=== PATIENT | female | born 1985 | race Two or more races ===

== ENCOUNTER 2016-12-05 07:58 | Emergency (ER) | payer SELFPAY ==
--- NOTE | 2016-12-05 09:29 | ER Document Report ---
ED Substance Abuse / Acc. OD - General Mode of Arrival: Medic Information source: Patient TRAVEL OUTSIDE OF THE U.S. IN LAST 30 DAYS: No - HPI Patient complains to provider of: Drug abuse - cocaine Onset: This morning Associated Symptoms: Other - see notes above <AMARJIT DON - Last Filed: 12/05/16 10:18> <LAURE DE LA CRUZ - Last Filed: 12/05/16 14:39> - General Chief Complaint: Drug Abuse Stated Complaint: BODY PAIN Time Seen by Provider: 12/05/16 09:00 Notes: 31 year old female with history of anxiety, depression, bipolar disorder, and cocaine and methamphetamine substance abuse presents to the ED complaining of generalized pain and visual and auditory hallucinations that started this morning after snorting and injecting cocaine at approximately 0500. Patient reports that she injected into her hand. Patient explains that she feels different from when she normally uses and that she got her cocaine from a new source recently. Patient is specifically complaining of chest soreness. Patient also states that she got mad at the nurse because she heard her parents outside her room even though no one was there. Patient denies suicidal ideation. When asked if the patient would like to receive help to quit substance abuse, the patient explains that she 'knows that it is the right thing to do', but she ' likes the way it feels.' (AMARJIT DON) Patient states that her biggest concern today is that there may have been something other than cocaine in the drug that she used. Patient states she would like to know what else she used today. (LAURE DE LA CRUZ) - Related Data Allergies/Adverse Reactions: Sulfa (Sulfonamide Antibiotics) Allergy (Verified 12/05/16 08:05) Past Medical History - General Information source: Patient - Social History Smoking Status: Current Every Day Smoker Chew tobacco use (# tins/day): No Frequency of alcohol use: Social Drug Abuse: Cocaine, Methamphetamine Family History: Reviewed & Not Pertinent Patient has suicidal ideation: No Patient has homicidal ideation: No Renal/ Medical History: Reports: Hx Ovarian Cysts. Denies: Hx Peritoneal Dialysis Musculoskeltal Medical History: Reports Hx Musculoskeletal Trauma - fractured foot, shoulder dislocation, fractured finger Psychiatric Medical History: Reports: Hx Anxiety, Hx Bipolar Disorder, Hx Depression, Hx Schizophrenia Traumatic Medical History: Reports: Hx Fractures Past Surgical History: Reports: Hx Orthopedic Surgery - Left fifth finger was pinned on 04/02/2015. - Immunizations Immunizations up to date: Yes Hx Diphtheria, Pertussis, Tetanus Vaccination: Yes <DONAMARJIT - Last Filed: 12/05/16 10:18> Review of Systems - Review of Systems Constitutional: See HPI, Other - generalized 'soreness' EENT: No symptoms reported Cardiovascular: See HPI, Chest pain - 'soreness' Respiratory: No symptoms reported Gastrointestinal: No symptoms reported Genitourinary: No symptoms reported Female Genitourinary: No symptoms reported Musculoskeletal: No symptoms reported Skin: No symptoms reported Hematologic/Lymphatic: No symptoms reported Neurological/Psychological: See HPI, Hallucinations - visual and auditory. denies: Suicidal ideation -: Yes All other systems reviewed and negative <DONAMARJIT - Last Filed: 12/05/16 10:18> Physical Exam <AMARJIT DON - Last Filed: 12/05/16 10:18> <LAURE DE LA CRUZ - Last Filed: 12/05/16 14:39> - Vital signs Vitals: Temp Pulse Resp BP Pulse Ox 98 F 138 H 26 H 137/108 H 98 12/05/16 08:05 12/05/16 08:05 12/05/16 08:05 12/05/16 08:05 12/05/16 08:05 - Notes Notes: GENERAL: Alert, interacts well. No acute distress. HEAD: Normocephalic, atraumatic. EYES: Pupils equal, round, and reactive to light. Extraocular movements intact. ENT: Oral mucosa moist, tongue midline. Nares patent, no nasal septal hematoma. Clear rhinorrhea and swelling to the right nostril. Left septum is erythematous with no bleeding. There is no hole to the nasal septum. NECK: Full range of motion. Supple. Trachea midline. LUNGS: Clear to auscultation bilaterally, no wheezes, rales, or rhonchi. No respiratory distress. HEART: Tachycardic with normal rhythm. No murmurs, gallops, or rubs. ABDOMEN: Soft. Non-distended. Slightly hyperactive bowel sounds. Bilateral lower quadrant tenderness to palpation with no guarding, rebound, or rigidity. EXTREMITIES: Moves all 4 extremities spontaneously. No edema, radial and dorsalis pedis pulses 2/4 bilaterally. No cyanosis. NEUROLOGICAL: Alert and oriented x3. Normal speech. PSYCH: Tearful and anxious. SKIN: Warm, dry, normal turgor. Track toscano to the dorsal aspect of the left hand and ulnar aspect of the right wrist and hand. No thrombosis, erythema, or signs of infection. (AMARJIT DON) Course - Laboratory Result Diagrams: 12/05/16 09:55 12/05/16 09:55 <AMARJIT DON - Last Filed: 12/05/16 10:18> - Laboratory Result Diagrams: 12/05/16 09:55 12/05/16 09:55 <LAURE DE LA CRUZ - Last Filed: 12/05/16 14:39> - Re-evaluation Re-evalutation: 12/05/16 12:51 CBC shows slight leukocytosis of 11.7 which is likely demargination from the stress of using cocaine, mild anemia with a hemoglobin 11.6, potassium slightly low at 3.4, this was repleted by mouth, 3 is otherwise unremarkable, cardiac enzymes negative, EKG is nonischemic, urine drug screen shows cocaine and marijuana, cannot test for amphetamines as there is an interfering substance. Chest x-ray is negative. Patient was hydrated with a liter of normal saline and treated with oral Ativan. Patient is no longer having any hallucinations, tachycardia has resolved while sleeping. Patient now remembers that she is scheduled to go to [facility] tomorrow for an inpatient 6 day rehab program. Patient denies suicidal ideation, will be discharged home (LAURE DE LA CRUZ) - Vital Signs Vital signs: Temp Pulse Resp BP Pulse Ox 98 F 138 H 18 119/75 100 12/05/16 08:05 12/05/16 08:05 12/05/16 13:01 12/05/16 13:01 12/05/16 13:01 - Laboratory Laboratory results interpreted by me: 12/05/16 12/05/16 09:55 09:55 WBC 11.7 H Hgb 11.6 L Hct 34.3 L Absolute Neutrophils 8.9 H Potassium 3.4 L - EKG Interpretation by Me Additional EKG results interpreted by me: 12/05/16 12:51 EKG shows sinus tachycardia at a rate of 103, normal axis, normal intervals, no ST segment elevations or depressions, there are isolated T-wave inversion in lead III per my interpretation. 12/05/16 12:51 (LAURE DE LA CRUZ) Discharge <AMARJIT DON - Last Filed: 12/05/16 10:18> <LAURE DE LA CRUZ - Last Filed: 12/05/16 14:39> - Discharge Clinical Impression: Cocaine use, Marijuana use, Amphetamine use disorder, moderate, Auditory hallucinations Condition: Stable Disposition: HOME, SELF-CARE Additional Instructions: Please stop using drugs. Please keep your appointment with [facility] tomorrow for your inpatient drug rehab program. Scribe Attestation: 12/05/16 14:39 I personally performed the services described in the documentation, reviewed and edited the documentation which was dictated to the scribe in my presence, and it accurately records my words and actions. (LAURE DE LA CRUZ) Scribe Documentation - Scribe Written by Bishnu:: Bishnu Meza, 12/05/2016 1041 acting as scribe for :: Saud <AMARJIT DON - Last Filed: 12/05/16 10:18>
[2016-12-05] MEDS ORDERED: LORAZEPAM 1 MG TABLET PO ONE (09:32)
[2016-12-05] MEDS ORDERED: ASPIRIN 81 MG TABLET, CHEWABLE PO ONE (09:32)
[2016-12-05] MEDS ORDERED: NORMAL SALINE 1000 ML 1,000 ML IV ONE (09:32)
[2016-12-05 10:17] LABS: ABSOLUTE LYMPHOCYTES (AUTO) 1.8 10^3/uL (0.5-4.7); ABSOLUTE MONOCYTES (AUTO) 0.9 10^3/uL (0.1-1.4); ABSOLUTE NEUT (AUTO) 8.9 10^3/uL (1.7-8.2); BASOPHILS % (AUTO) 0.3 % (0-2); EOSINOPHILS % (AUTO) 0.2 % (0-6); HEMATOCRIT 34.3 % (36.0-47.0); HEMOGLOBIN 11.6 g/dL (12.0-15.5); HGB HCT DIFFERENCE 0.5; LYMPHOCYTES % (AUTO) 15.5 % (13-45); MEAN CORPUSCULAR HEMOGLOBIN 28.8 pg (27.0-33.4); MEAN CORPUSCULAR HGB CONC 33.8 g/dL (32.0-36.0); MEAN CORPUSCULAR VOLUME 85 fl (80-97); MONOCYTES % (AUTO) 7.6 % (3-13); RED BLOOD COUNT 4.02 10^6/uL (3.72-5.28); RED CELL DISTRIBUTION WIDTH 12.5 % (11.5-14.0); SEGMENTED NEUTROPHILS % (AUTO) 76.4 % (42-78); WHITE BLOOD COUNT 11.7 10^3/uL (4.0-10.5)
--- NOTE | 2016-12-05 10:31 | RADIOLOGY REPORT (SQ) ---
EXAM DESCRIPTION: CHEST SINGLE VIEW COMPLETED DATE/TIME: 12/05/2016 10:14 am REASON FOR STUDY: chest pain post cocaine use COMPARISON: 03/28/2015 EXAM PARAMETERS: NUMBER OF VIEWS: One view. TECHNIQUE: Single frontal radiographic view of the chest acquired. RADIATION DOSE: NA LIMITATIONS: None. FINDINGS: LUNGS AND PLEURA: No opacities, masses or pneumothorax. No pleural effusion. MEDIASTINUM AND HILAR STRUCTURES: No masses. Contour normal. HEART AND VASCULAR STRUCTURES: Heart normal in size. Normal vasculature. BONES: No acute findings. HARDWARE: None in the chest. OTHER: No other significant finding. IMPRESSION: NO ACUTE RADIOGRAPHIC FINDING IN THE CHEST. TECHNICAL DOCUMENTATION: JOB ID: [id number]
[2016-12-05 10:36] LABS: ALANINE AMINOTRANSFERASE 36 U/L (9-52); ALBUMIN 4.6 g/dL (3.5-5.0); ALKALINE PHOSPHATASE 90 U/L (38-126); ANION GAP 16 (5-19); ASPARTATE AMINO TRANSFERASE 29 U/L (14-36); BILIRUBIN,DIRECT 0.3 mg/dL (0.0-0.4); BILIRUBIN,TOTAL 0.8 mg/dL (0.2-1.3); BLOOD UREA NITROGEN 16 mg/dL (7-20); CARBON DIOXIDE 25 mmol/L (22-30); CHLORIDE 102 mmol/L (98-107); CREATINE KINASE 91 U/L (30-135); CREATININE RESULT 0.66 mg/dL (0.52-1.25); GLUCOSE 89 mg/dL (75-110); POTASSIUM 3.4 mmol/L (3.6-5.0); SODIUM 142.6 mmol/L (137-145); TOTAL PROTEIN 8.2 g/dL (6.3-8.2)
[2016-12-05 10:46] LABS: CREATINE KINASE MB 0.71 ng/mL (<4.55); TROPONIN I < 0.012 ng/mL
[2016-12-05 12:03] LABS: URINE BARBITURATES SCREEN NEGATIVE; URINE METHADONE SCREEN NEGATIVE; URINE OPIATES LOW NEGATIVE; URINE PHENCYCLIDINE SCREEN NEGATIVE
[2016-12-05] MEDS ORDERED: POTASSIUM CHLORIDE 10 MEQ TABLET.SA PO ONE (12:51)
[2016-12-05 13:12] VITALS: BP 119/75
--- NOTE | 2016-12-05 17:07 | EKG REPORT ---
SEVERITY:- OTHERWISE NORMAL ECG - SINUS TACHYCARDIA : Confirmed by: Francisco Javier Li 05-Dec-2016 17:06:36
== END 2016-12-05 13:20 | disposition home or self-care (01) ==
LOC: ER 07:58
DX: R44.0 Auditory hallucinations (principal); F14.10 Cocaine abuse, uncomplicated; F15.10 Other stimulant abuse, uncomplicated; F12.90 Cannabis use, unspecified, uncomplicated; R52 Pain, unspecified; F41.9 Anxiety disorder, unspecified; F32.9 Major depressive disorder, single episode, unspecified; F31.9 Bipolar disorder, unspecified; R07.9 Chest pain, unspecified; F17.200 Nicotine dependence, unspecified, uncomplicated
CPT/HCPCS: 93005; 99284; 36415; 82553; 82550; 84703; 85025; 80053; 84484; 80307; 71010; 93010; J7030

== ENCOUNTER 2017-02-12 17:59 | Emergency (ER) | payer SELFPAY ==
[2017-02-12 18:08] VITALS: BP 132/79
--- NOTE | 2017-02-12 18:43 | ER Document Report ---
ED Medical Screen (RME) - General Chief Complaint: Mouth Problem Stated Complaint: MOUTH PAIN Time Seen by Provider: 02/12/17 18:35 Notes: Patient is here because she says she has had a painful sore in the gum of her mouth that is getting bigger over the past 3 weeks. She says it is now 3 times the size it was when it started. She is concerned that she may have mouth cancer because it runs in her family. In addition, the patient says that she has been constipated and does not think she has had a bowel movement for about a week. Denies vomiting or diarrhea. Denies UTI symptoms. Says she has felt hot but not aware of a fever. Says it is difficult to chew food and swallow. Patient is so tearful and almost hysterical that it is impossible to visualize her oral structures. She will not sit still for even a few seconds for me to locate the lesion she is concerned about. TRAVEL OUTSIDE OF THE U.S. IN LAST 30 DAYS: No - Related Data Allergies/Adverse Reactions: Sulfa (Sulfonamide Antibiotics) Allergy (Verified 02/12/17 18:02) Past Medical History - Social History Chew tobacco use (# tins/day): No Frequency of alcohol use: Rare Drug Abuse: Cocaine, Marijuana Renal/ Medical History: Reports: Hx Ovarian Cysts. Denies: Hx Peritoneal Dialysis Musculoskeltal Medical History: Reports Hx Musculoskeletal Trauma - fractured foot, shoulder dislocation, fractured finger Psychiatric Medical History: Reports: Hx Anxiety, Hx Bipolar Disorder, Hx Depression, Hx Schizophrenia Traumatic Medical History: Reports: Hx Fractures Past Surgical History: Reports: Hx Orthopedic Surgery - Left fifth finger was pinned on 04/02/2015. - Immunizations Immunizations up to date: Yes Hx Diphtheria, Pertussis, Tetanus Vaccination: Yes Physical Exam - Vital signs Vitals: Temp Pulse Resp BP Pulse Ox 100.4 F 141 H 24 H 132/79 H 99 02/12/17 18:02 02/12/17 18:02 02/12/17 18:02 02/12/17 18:02 02/12/17 18:02 Course - Vital Signs Vital signs: Temp Pulse Resp BP Pulse Ox 100.4 F 141 H 24 H 132/79 H 99 02/12/17 18:02 02/12/17 18:02 02/12/17 18:02 02/12/17 18:02 02/12/17 18:02
== END 2017-02-12 19:00 | disposition left against medical advice (07) ==
LOC: ER 17:59
DX: K13.70 Unspecified lesions of oral mucosa (principal); K59.00 Constipation, unspecified; R13.10 Dysphagia, unspecified; Z80.0 Family history of malignant neoplasm of digestive organs; Z88.2 Allergy status to sulfonamides; Z53.20 Procedure and treatment not carried out because of patient's decision for unspecified reasons
CPT/HCPCS: 99281

== ENCOUNTER 2017-12-20 15:30 | Emergency (ER) | payer SELFPAY ==
[2017-12-20 15:37] VITALS: BP 109/76
[2017-12-20] MEDS ORDERED: PENICILLIN V POTASSIUM 500 MG TABLET PO ONE (15:53)
[2017-12-20] MEDS ORDERED: LIDOCAINE 2% VISCOUS SOLN 20 ML UDCUP PO ONE (15:53)
--- NOTE | 2017-12-20 15:55 | ER Document Report ---
ED Oral Problem - General Chief Complaint: Toothache Stated Complaint: TOOTH PAIN Time Seen by Provider: 12/20/17 15:40 Mode of Arrival: Ambulatory Information source: Patient Notes: 32-year-old female presented ED for complaint of dental pain. She states that the pain started this morning but she has had the cavities for a long time. Patient is alert and oriented respirations regular and unlabored speaking in full sentences walks with a even steady gait. TRAVEL OUTSIDE OF THE [place] IN LAST 30 DAYS: No - HPI Patient complains to provider of: Toothache Onset: Other - Pain started this morning cavities been there for a extended period of time Onset: Gradual Quality of pain: Sharp, Throbbing Severity: Severe Pain Level: 5 Associated symptoms: Toothache Worsened by: Cold Relieved by: Nothing Similar symptoms previously: Yes Recently seen / treated by doctor/dentist: No - Related Data Allergies/Adverse Reactions: Sulfa (Sulfonamide Antibiotics) Allergy (Verified 12/20/17 15:52) Past Medical History - General Information source: Patient - Social History Smoking Status: Current Every Day Smoker Cigarette use (# per day): Yes - 6 or 7 cigarettes a day Chew tobacco use (# tins/day): No Smoking Education Provided: Yes - Minutes Frequency of alcohol use: None Drug Abuse: None Lives with: Family Family History: Reviewed & Not Pertinent Patient has suicidal ideation: No Patient has homicidal ideation: No - Past Medical History Cardiac Medical History: Reports: None Pulmonary Medical History: Reports: None EENT Medical History: Reports: None Neurological Medical History: Reports: None Endocrine Medical History: Reports: None Renal/ Medical History: Reports: Hx Ovarian Cysts Malignancy Medical History: Reports: None GI Medical History: Reports: None Musculoskeltal Medical History: Reports Hx Musculoskeletal Trauma - fractured foot, shoulder dislocation, fractured finger Skin Medical History: Reports None Psychiatric Medical History: Reports: Hx Anxiety, Hx Bipolar Disorder, Hx Depression, Hx Schizophrenia Traumatic Medical History: Reports: Hx Fractures Infectious Medical History: Reports: None Past Surgical History: Reports: Hx Orthopedic Surgery - Left fifth finger was pinned on 04/02/2015. - Immunizations Immunizations up to date: Yes Hx Diphtheria, Pertussis, Tetanus Vaccination: Yes Review of Systems - Review of Systems Constitutional: No symptoms reported EENT: Dental problem Cardiovascular: No symptoms reported Respiratory: No symptoms reported Gastrointestinal: No symptoms reported Genitourinary: No symptoms reported Female Genitourinary: No symptoms reported Musculoskeletal: No symptoms reported Skin: No symptoms reported Hematologic/Lymphatic: No symptoms reported Neurological/Psychological: No symptoms reported -: Yes All other systems reviewed and negative Physical Exam - Vital signs Vitals: Temp Pulse BP Pulse Ox 98.8 F 115 H 109/76 99 12/20/17 15:36 12/20/17 15:36 12/20/17 15:36 12/20/17 15:36 Interpretation: Normal - General General appearance: Appears well, Alert - HEENT Head: Normocephalic, Atraumatic Eyes: Normal Pupils: PERRL Ears: Normal External canal: Normal Tympanic membrane: Normal Sinus: Normal Nasal: Normal Mouth/Lips: Caries Mucous membranes: Normal Pharynx: Normal Neck: Anterior cervical chain - Respiratory Respiratory status: No respiratory distress Chest status: Nontender Breath sounds: Normal Chest palpation: Normal - Cardiovascular Rhythm: Regular Heart sounds: Normal auscultation Murmur: No - Abdominal Inspection: Normal Distension: No distension Bowel sounds: Normal Tenderness: Nontender Organomegaly: No organomegaly - Back Back: Normal, Nontender - Extremities General upper extremity: Normal inspection, Nontender, Normal color, Normal ROM , Normal temperature General lower extremity: Normal inspection, Nontender, Normal color, Normal ROM , Normal temperature, Normal weight bearing. No: Gaby's sign - Neurological Neuro grossly intact: Yes Cognition: Normal Orientation: AAOx4 Fabian Coma Scale Eye Opening: Spontaneous Fabian Coma Scale Verbal: Oriented Fabian Coma Scale Motor: Obeys Commands Fabian Coma Scale Total: 15 Speech: Normal Motor strength normal: LUE, RUE, LLE, RLE Sensory: Normal - Psychological Associated symptoms: Normal affect, Normal mood - Skin Skin Temperature: Warm Skin Moisture: Dry Skin Color: Normal Course - Re-evaluation Re-evalutation: 12/20/17 22:49 Patient was treated with Penicillin VK and viscous lidocaine for dental pain and cavity. Patient was instructed to use the viscous lidocaine every 1-2 hours small amount to the tooth and gums surrounding the tooth for her pain. Patient was also instructed on use of ibuprofen and Tylenol. Patient to follow- up with the dentist as soon as possible for care of this tooth. After performing a Medical Screening Examination, I estimate there is LOW risk for a DEEP SPACE INFECTION (e.g., ISA'S ANGINA OR RETROPHARYNGEAL ABSCESS), MENINGITIS, INTRACRANIAL HEMORRHAGE, or AIRWAY COMPROMISE, thus I consider the discharge disposition reasonable. Also, there is no evidence or peritonitis, sepsis, or toxicity. I have reevaluated this patient multiple times and no significant life threatening changes are noted. The patient and I have discussed the diagnosis and risks, and we agree with discharging home with close follow-up with the understanding that symptoms and presentations can change. We also discussed returning to the Emergency Department immediately if new or worsening symptoms occur. We have discussed the symptoms which are most concerning (e.g., changing or worsening pain, trouble swallowing or breathing, neck stiffness or fever) that necessitate immediate return. - Vital Signs Vital signs: Temp Pulse Resp BP Pulse Ox 98.8 F 92 18 109/76 99 12/20/17 15:36 12/20/17 16:09 12/20/17 16:09 12/20/17 15:36 12/20/17 16:09 Discharge - Discharge Clinical Impression: Pain due to dental caries Condition: Stable Disposition: HOME, SELF-CARE Additional Instructions: TOOTHACHE: Your pain is due to dental decay. The tooth must be repaired in order for you to feel better. You will, therefore, be referred to a dentist. We do not have dentists on the staff at [facility]. Severe swelling or drainage around a tooth usually means a dental abscess. This also requires evaluation and treatment by the dentist, but antibiotics may be prescribed while awaiting dental treatment. You should be rechecked immediately if you develop major swelling of the face, increasing pain, a lump in the jaw or gums, headache, difficulty swallowing, or fever. PENICILLIN V K: You have been given a prescription for Penicillin VK. Your physician has determined that this is the best antibiotic for your condition. Pen VK can be taken with meals, however more of the antibiotic gets into the bloodstream if it's taken on an empty stomach. Penicillin usually has no side effects. However, allergy to penicillins is common. If you have had an allergic reaction to any drug of the penicillin family, you should never take any other penicillin. Notify your doctor at once if you develop hives, itching, swelling, faintness, or shortness of breath. You have been given a syringe of viscous lidocaine. You can take a small amount of this and put it on your finger rub to the gums and front and back of the tooth it is certain he can also rub it on the tooth. Please be aware that this will also numb your cheek and your tongue. Please be careful that she do not chew on your cheek or your tongue. You can use this every 1-2 hours until you can follow-up with a dentist. You can gargle with warm salt and soda solution this will also help with your dental pain. Salt and soda solution 1 quart of water 1 tablespoon of salt 1 teaspoon of baking soda Mixed 3 ingredients together and boil for 1 minute Placed in a covered quart jar Use 1/2 ounce of cold solution to gargle 3 times a day FOLLOW-UP CARE: You have been referred for follow-up care to the dentists listed below. Call the dentists office for an appointment as you were instructed or within the next two days. If you experience worsening or a significant change in your symptoms, notify the physician immediately or return to the Emergency Department at any time for re-evaluation. [facility] [address] [place], [place] [facility] [address] [place] [address] [facility] [address] [facility] [address] [facility]) [facility] [address] [facility] [email or web address] [facility] [address] [place] [address] Thursday- 8:00am to 5:00 pm Will see patients from other [facility]. Charges based on income and family size and accepts Medicare, Medicaid, and Insurances Will pull molars [facility] [id number] Hours of Operation 8:00 am - 4:30 pm weekdays The following dental offices accept Medicaid: [facility] Dr. Cho Dr. Monterroso Dr. Naqvi Dr. Morgan Andrey Shane, [place], and [place] oral surgery Dr. Sandhu ([place]) Dr. Steen ([place]) [facility] Drs. Robison ([place]) Dr. Meier ([place]) [facility] Dr. Pratt ([place]) Drs. Bardales and ([place]) Medicaid Care Line Prescriptions: Penicillin V Potassium [Penicillin Vk 500 mg Tablet] 500 mg PO BID #20 tablet Forms: Smoking Cessation Education
== END 2017-12-20 16:11 | disposition home or self-care (01) ==
LOC: ER 15:30
DX: K02.9 Dental caries, unspecified (principal); F17.210 Nicotine dependence, cigarettes, uncomplicated; Z88.2 Allergy status to sulfonamides
CPT/HCPCS: 99282; J3490

== ENCOUNTER 2018-02-13 05:11 | Emergency (ER) | payer SELFPAY ==
--- NOTE | 2018-02-13 05:58 | ER Document Report ---
ED Medical Screen (RME) - General Chief Complaint: Headache Stated Complaint: NUMBNESS Time Seen by Provider: 02/13/18 05:48 Mode of Arrival: Medic Information source: Patient Notes: Patient is a 32-year-old female who presents via EMS for chief complaint of headache and right sided numbness and tingling. Patient reports her headache started yesterday at 3 PM. Patient describes this headache as a sudden onset. Patient denies any history of migraines. Patient reports she took Tylenol and Aleve with no relief of her symptoms. Patient reports she woke up this morning at approximately 3 AM and felt numbness and tingling to her right upper and lower extremity. Patient's vital signs are stable. Will send patient for head CT. Exam: Patient with equal strength to her upper and lower extremities bilaterally. Patient reports decreased sensation to the right upper and lower extremity. Patient is alert, oriented and able to answer all questions appropriately. I have greeted and performed a rapid initial assessment of this patient. A comprehensive ED assessment and evaluation of the patient, analysis of test results and completion of the medical decision making process will be conducted by additional ED providers. Dictation of this chart was performed using voice recognition software; therefore, there may be some unintended grammatical errors. TRAVEL OUTSIDE OF THE [place] IN LAST 30 DAYS: No - Related Data Allergies/Adverse Reactions: Sulfa (Sulfonamide Antibiotics) Allergy (Verified 12/20/17 15:52) Past Medical History - Social History Chew tobacco use (# tins/day): No Drug Abuse: Marijuana Renal/ Medical History: Reports: Hx Ovarian Cysts. Denies: Hx Peritoneal Dialysis Musculoskeltal Medical History: Reports Hx Musculoskeletal Trauma - fractured foot, shoulder dislocation, fractured finger Psychiatric Medical History: Reports: Hx Anxiety, Hx Bipolar Disorder, Hx Depression, Hx Schizophrenia Traumatic Medical History: Reports: Hx Fractures Past Surgical History: Reports: Hx Orthopedic Surgery - Left fifth finger was pinned on 04/02/2015. - Immunizations Immunizations up to date: Yes Hx Diphtheria, Pertussis, Tetanus Vaccination: Yes
[2018-02-13] MEDS ORDERED: METOCLOPRAMIDE HCL INJ/PF 10 MG/2 ML SDV IV ONE (06:18)
[2018-02-13] MEDS ORDERED: RINGERS SOLUTION,LACTATED 1,000 ML IV ONE (06:18)
[2018-02-13] MEDS ORDERED: DIPHENHYDRAMINE HCL 50 MG/ML VIAL IV ONE (06:18)
--- NOTE | 2018-02-13 06:25 | ER Document Report ---
ED General - General Chief Complaint: Headache Stated Complaint: NUMBNESS Time Seen by Provider: 02/13/18 05:48 Mode of Arrival: Ambulatory Information source: Patient, Emergency Med Personnel, [facility] Records Notes: 32-year-old female with bipolar disorder, schizophrenia, remote alcohol use presents with complaint of headache that started 15 hours prior to arrival while at rest. Patient states that she was getting ready for work when she had an acute onset of sharp pain located on top of her head. Patient has associated photophobia, nausea without vomiting. She denies any head injury. She denies any recent illness. Patient has tried Tylenol and Excedrin without relief. She states that 3-1/2 hours prior to arrival she awoke with numbness of her right leg which has now resolved. TRAVEL OUTSIDE OF THE [place] IN LAST 30 DAYS: No - HPI Onset: Yesterday Onset/Duration: Sudden, Persistent Quality of pain: Sharp Severity: Moderate Pain Level: 2 Associated symptoms: Headache, Nausea. denies: Body/muscle aches, Chest pain, Nonproductive cough, Fever, Sinus pain/drainage, Shortness of breath, Weakness Exacerbated by: Movement Relieved by: Denies Similar symptoms previously: No Recently seen / treated by doctor: No - Related Data Allergies/Adverse Reactions: Sulfa (Sulfonamide Antibiotics) Allergy (Verified 12/20/17 15:52) Past Medical History - General Information source: Patient - Social History Smoking Status: Current Every Day Smoker Cigarette use (# per day): Yes - 10 Chew tobacco use (# tins/day): No Smoking Education Provided: Yes - Patient was counseled for 4 minutes regarding the importance of smoking claudia Frequency of alcohol use: None Drug Abuse: Marijuana Lives with: Family Family History: Reviewed & Not Pertinent Patient has suicidal ideation: No Patient has homicidal ideation: No Renal/ Medical History: Reports: Hx Ovarian Cysts. Denies: Hx Peritoneal Dialysis Musculoskeletal Medical History: Reports Hx Musculoskeletal Trauma - fractured foot, shoulder dislocation, fractured finger Psychiatric Medical History: Reports: Hx Anxiety, Hx Bipolar Disorder, Hx Depression, Hx Schizophrenia Traumatic Medical History: Reports: Hx Fractures Past Surgical History: Reports: Hx Orthopedic Surgery - Left fifth finger was pinned on 04/02/2015. - Immunizations Immunizations up to date: Yes Hx Diphtheria, Pertussis, Tetanus Vaccination: Yes Review of Systems - Review of Systems Notes: REVIEW OF SYSTEMS: CONSTITUTIONAL : Denies fever, chills, or sweats. Denies recent illness. Denies weight loss, recent hospitalizations. EENT: Denies visual changes, eye pain. Denies nasal or sinus congestion or discharge. Denies sore throat, oral lesions, difficulty swallowing. CARDIOVASCULAR: Denies chest pain. Denies palpitations. Denies lower extremity edema. RESPIRATORY: Denies cough, cold, or chest congestion. Denies shortness of breath, wheezing. GASTROINTESTINAL: Denies abdominal pain or distention. Denies nausea, vomiting , or diarrhea. Denies blood in vomitus, stools, or per rectum. Denies black, tarry stools. Denies constipation. GENITOURINARY: Denies difficulty urinating, painful urination, frequency, blood in urine, or vaginal discharge. MUSCULOSKELETAL: Denies back or neck pain or stiffness. Denies joint pain or swelling. SKIN: Denies rash, lesions or sores. HEMATOLOGIC : Denies easy bruising or bleeding. LYMPHATIC: Denies swollen glands. NEUROLOGICAL: Denies confusion or altered mental status. Denies passing out or loss of consciousness. Denies dizziness or lightheadedness. . Denies weakness or paralysis. Denies problems difficulty with ambulation, slurred speech. Denies sensory loss, or tingling. Denies seizures. PSYCHIATRIC: Denies anxiety or stress. Denies depression, suicidal ideation, or homicidal ideation. Denies visual or auditory hallucinations. PHYSICAL EXAMINATION: GENERAL: Well-appearing, well-nourished and in no acute distress. HEAD: Atraumatic, normocephalic. EYES: Pupils equal round and reactive to light, extraocular movements intact, conjunctiva are normal. ENT: Nares patent, oropharynx clear without exudates. Moist mucous membranes. NECK: Normal range of motion, supple without lymphadenopathy LUNGS: Breath sounds clear to auscultation bilaterally and equal. No wheezes rales or rhonchi. HEART: Regular rate and rhythm without murmurs ABDOMEN: Soft, nontender, nondistended abdomen. No guarding, no rebound. No masses appreciated. Female : deferred Musculoskeletal: Normal range of motion, no pitting or edema. No cyanosis. NEUROLOGICAL: Cranial nerves grossly intact. Normal speech, normal gait. Normal sensory, motor exams. NIH 0 PSYCH: Normal mood, normal affect. SKIN: Warm, Dry, normal turgor, no rashes or lesions noted. Physical Exam - Vital signs Vitals: Temp Pulse Resp BP Pulse Ox 97.8 F 63 16 97/52 L 100 02/13/18 07:32 02/13/18 07:32 02/13/18 07:32 02/13/18 07:32 02/13/18 07:32 Course - Re-evaluation Re-evalutation: Head CT 02/13/18 05:48 IMPRESSION: 1. No acute intracranial abnormality identified. This exam was performed according to our departmental dose-optimization program, which includes automated exposure control, adjustment of the mA and/or kV according to patient size and/or use of iterative reconstruction technique. 02/13/18 08:31 32-year-old female with bipolar disorder, schizophrenia, remote alcohol use presents with complaint of headache that started 15 hours prior to arrival while at rest. Patient states that she was getting ready for work when she had an acute onset of sharp pain located on top of her head. Patient has associated photophobia, nausea without vomiting. She denies any head injury. She denies any recent illness. Patient has tried Tylenol and Excedrin without relief. Patient was seen by myself upon arrival. Vital signs were reviewed. Patient is afebrile, normotensive and not hypoxic. Patient does not appear toxic or dehydrated. They are in no acute distress. Previous medical records and nursing notes reviewed. NIH performed and 0. CT of the head was obtained and showed no acute process. Patient did receive IV fluids, Reglan, Benadryl, Toradol. She was reevaluated multiple times and is sleeping soundly. On my last evaluation I awoke the patient and she admits to an improvement of her headache. Patient provided the opportunity to ask questions, and express concerns. Discharge instructions discussed. Patient is agreeable with discharge home. Return indications explained and discussed with the patient who displays understanding. Patient encouraged to return to the emergency department immediately with any concerns. 02/13/18 08:32 02/13/18 09:11 Upon discharge patient now complaining of right leg numbness which she had just told me had resolved. She states that we have not done anything for her although we have given her medications and scanned her head. I did offer her an MRI but the patient refused and left. Patient's exam is not consistent with stroke, subarachnoid hemorrhage. - Vital Signs Vital signs: Temp Pulse Resp BP Pulse Ox 97.8 F 74 16 104/56 L 99 02/13/18 07:32 02/13/18 08:53 02/13/18 08:53 02/13/18 08:53 02/13/18 08:53 - Diagnostic Test Radiology reviewed: Image reviewed, Reports reviewed Discharge - Discharge Clinical Impression: Headache Qualifiers: Headache type: unspecified Headache chronicity pattern: unspecified pattern Intractability: not intractable Qualified Code(s): R51 - Headache Condition: Good Disposition: HOME, SELF-CARE Instructions: Use of Diphenhydramine, Headache ([facility]), Reglan ([facility]) Additional Instructions: Your CAT scan today was normal. Please take Motrin as needed for your headache. Please return if you experience any slurred speech, changes in vision , difficulty walking or a recurrence of your headache. Prescriptions: Ibuprofen [Motrin 600 Mg Tablet] 600 mg PO TID #15 tablet Forms: Smoking Cessation Education, Return to Work ED NIH Stroke Scale - NIH Stroke Scale When completed:: Before Alteplase *: 1. NIH scale should be completed with appropriate accompanying assessment tools. *: 2. The NIH should reflect what the patient is capable of doing and should not be coached by the clinician. 1a. Level of Consciousness: 0=Alert;keenly responsive -: 1=Drowsy -: 2=Obtunded -: 3=Coma/unresponsive or reflex to noxious stimuli. 1a. Responses: 0 1b. Orientation Questions: a. What month is it? -: b. How old are you? -: 0=Answers both questions correctly. -: 1=Answers one question correctly or patient is intubated or has orotracheal trauma. -: 2=Answers neither question correctly. 1b. Responses: 0 1c. Response to commands: a. Open and close eyes? -: b. Architectural Practice Manager and release hand? -: Credit is given despite weakness. Demonstration of task is permitted. Substitute command if hands cannot be used. -: 0=Performs both tasks correctly -: 1=Performs one task correctly -: 2=Performs neither task correctly 1c. Responses: 0 2. Gaze: Establish eye contact and instruct patient to "Follow my finger" -: 0=Normal -: 1=Partial gaze palsy. Gaze is abnormal in one or both eyes, but where forced deviation or total gaze paresis is not present. -: 2=Forced deviation or total gaze paresis. 2. Responses: 0 3. Visual Mirza: Sees fingers in all four quadrants. -: 0=No visual loss. -: 1=Partial hemianopsia. -: 2=Complete hemianopsia. -: 3=Bilateral hemianopsia (including Cortical blindness) 3. Responses: 0 4. Facial Movement: Instruct patient to: -: a. Show me your teeth -: b. Raise your eyebrows -: c. Close your eyes -: d. Smile -: 0=Normal symmetrical movement -: 1=Minor paralysis (flattened nasolabial fold, asymmetry on smiling). -: 2=Partial paralysis (total or near total paralysis of lower face). -: 3=Complete paralysis of upper and lower face 4. Responses: 0 5. Motor functions (left arm): Alternate sides and extend each arm with palms down (90 degrees if sitting or 45 degrees for supine). -: 0=No drift;limb holds for full 10 seconds. -: 1=Drift; limb holds but drifts down before full 10 seconds, but does not hit bed. -: 2=Some effort against gravity; limb cannot get to or maintain position. -: 3=No effort against gravity; limb falls. -: 4=No movement. -: UN=Amputation, joint fusion, explain in comments. 5. Responses (left arm): 0 5. Motor Functions (right arm): Alternate sides and extend each arm with palms down (90 degrees if sitting or 45 degrees for supine). -: 0=No drift;limb holds for full 10 seconds. -: 1=Drift; limb holds but drifts down before full 10 seconds, but does not hit bed. -: 2=Some effort against gravity; limb cannot get to or maintain position. -: 3=No effort against gravity; limb falls. -: 4=No movement. -: UN=Amputation, joint fusion, explain in comments. 5. Responses (right arm): 0 6. Motor Functions (left leg): With patient lying supine, alternate sides and extend each leg (30 degrees always while supine). -: 0=No drift, leg holds position for full 5 seconds -: 1=Drift; leg falls before full 5 seconds but does not hit bed. -: 2=Some effort against gravity, leg falls to bed but some effort against gravity. -: 3=No effort against gravity, leg falls to bed immediately. -: 4=No movement. -: UN=Amputation, joint fusion; explain in comments. 6. Responses (left leg): 0 6. Motor Functions (right leg): With patient lying supine, alternate sides and extend each leg (30 degrees always while supine). -: 0=No drift, leg holds position for full 5 seconds -: 1=Drift; leg falls before full 5 seconds but does not hit bed. -: 2=Some effort against gravity, leg falls to bed but some effort against gravity. -: 3=No effort against gravity, leg falls to bed immediately. -: 4=No movement. -: UN=Amputation, joint fusion; explain in comments. 6. Responses (right leg): 0 7. Limb Ataxia: With eyes open instruct patient to: -: a. "Touch your finger to your nose". -: b. "Touch your heel to your andujar" -: 0=Absent -: 1=Present in one limb. -: 2=Present in two limbs. -: UN=Amputation or joint fusion; explain in comments. 7. Responses: 0 8. Sensory: Test sensation using pinprick or noxious stimuli. Test as many body parts as possible. -: 0=Normal;no sensory loss -: 1=Mile to moderate sensory loss (patient feels pin prick but is less sharp on affected side). -: 2=Severe or total sensory loss. 8. Responses: 0 9. Best Language: Instruct patient to: -: a. "Describe what you see in this picture." -: b. "Name the items in this picture." -: c. "Read these sentences." -: 0=No aphasia, normal -: 1=Mild to moderate aphasia. -: 2=Severe aphasia -: 3=Mute, global aphasia, no usable speech or auditory comprehension. 9. Responses: 0 10. Articulation, Dysarthia: Instruct patient to: -: "Read these words" or "Repeat these words" -: 0=Normal -: 1=Mild to moderate; patient may slur some words but can be understood without difficulty. -: 2=Severe; patients speech so slurred as to be unintelligible in the absence of dysphasia. -: UN=Intubated or other physical barrier, explain in comments. 10. Responses: 0 11. Extinction or inattention: 0=No abnormality -: 1= Visual, tactile, auditory, spatial, or personal inattention or extinction to bilateral simulation in one or the sensory modalities. -: 2=Profound tylor-inattention or tylor-inattention to more than one modality; does not recognize own hand. 11. Responses: 0 Total Score: 0
--- NOTE | 2018-02-13 06:51 | RADIOLOGY REPORT (SQ) ---
EXAM DESCRIPTION: CT HEAD WITHOUT IV CONTRAST COMPLETED DATE/TME: 02/13/2018 05:48 CLINICAL HISTORY: headache, numbness COMPARISON: 03/25/2015 TECHNIQUE: Axial CT of the head obtained from the skull apex to the skull base without contrast. FINDINGS: No acute intracranial hemorrhage identified. No mass, mass effect, shift of the midline, abnormal extra-axial fluid collection or CT evidence of acute ischemic change identified. The ventricular system is unremarkable. No acute abnormalities of the supratentorial white matter, basal ganglia, cerebellum, or brainstem. The visualized paranasal sinuses and the mastoids are clear. No skull fracture identified. Visualized orbits and globes are unremarkable. DLP: 1176.79 mGy-cm IMPRESSION: 1. No acute intracranial abnormality identified. This exam was performed according to our departmental dose-optimization program, which includes automated exposure control, adjustment of the mA and/or kV according to patient size and/or use of iterative reconstruction technique.
[2018-02-13] MEDS ORDERED: KETOROLAC TROMETHAMINE INJ/PF 30 MG/1 ML SDV IV ONE (07:09)
[2018-02-13 08:54] VITALS: BP 104/56
== END 2018-02-13 08:53 | disposition home or self-care (01) ==
LOC: ER 05:11
DX: R51 Headache (principal); R20.0 Anesthesia of skin; R11.0 Nausea; H53.149 Visual discomfort, unspecified; F17.210 Nicotine dependence, cigarettes, uncomplicated; Z71.6 Tobacco abuse counseling; Z88.2 Allergy status to sulfonamides
CPT/HCPCS: 99284; 96361; 96374; 96375; 70450; J1200; J1885; J2765; J7120

== ENCOUNTER 2018-03-31 22:33 | Emergency (ER) | payer SELFPAY ==
--- NOTE | 2018-04-01 00:22 | RADIOLOGY REPORT (SQ) ---
EXAM DESCRIPTION: XR RIBS BILATERAL WITH CHEST COMPLETED DATE/TME: 03/31/2018 23:33 CLINICAL HISTORY: 32 years, Female, eval for rib fx, pain to posterior left chest COMPARISON: None. NUMBER OF VIEWS: Four TECHNIQUE: AP view of the chest with images of the bilateral ribs LIMITATIONS: None. FINDINGS: The lungs are clear. The heart is normal in size. There is no pneumothorax or pleural effusion. There is no acute fracture. IMPRESSION: No acute cardiopulmonary abnormality. No rib fracture. 2011 [employer]- All Rights Reserved
--- NOTE | 2018-04-01 01:04 | ER Document Report ---
HPI - HPI Pain Level: 5 Notes: Patient is an otherwise healthy 32-year-old female who presents with chief complaint of left rib pain. Patient reports this is been going on for several hours. Patient reports associated shortness of breath. Patient reports she was doing a heavy weight workout when this began. - CONSTITUTIONAL Constitutional: DENIES: Fever - RESPIRATORY Respiratory: REPORTS: Coughing - REPRODUCTIVE LMP: now Reproductive: DENIES: : Past Medical History - General Information source: Patient - Social History Smoking Status: Current Every Day Smoker Chew tobacco use (# tins/day): No Frequency of alcohol use: Occasional Drug Abuse: None Family History: Reviewed & Not Pertinent Patient has suicidal ideation: No Patient has homicidal ideation: No Renal/ Medical History: Reports: Hx Ovarian Cysts. Denies: Hx Peritoneal Dialysis Musculoskeletal Medical History: Reports Hx Musculoskeletal Trauma - fractured foot, shoulder dislocation, fractured finger Psychiatric Medical History: Reports: Hx Anxiety, Hx Bipolar Disorder, Hx Depression, Hx Schizophrenia Traumatic Medical History: Reports: Hx Fractures Past Surgical History: Reports: Hx Orthopedic Surgery - Left fifth finger was pinned on 04/02/2015. - Immunizations Immunizations up to date: Yes Hx Diphtheria, Pertussis, Tetanus Vaccination: Yes Vertical Provider Document - CONSTITUTIONAL Notes: PHYSICAL EXAMINATION: GENERAL: Well-appearing, well-nourished and in no acute distress. HEAD: Atraumatic, normocephalic. EYES: Pupils equal round and reactive to light, extraocular movements intact, conjunctiva are normal. ENT: Nares patent, oropharynx clear without exudates. Moist mucous membranes. NECK: Normal range of motion, supple without lymphadenopathy LUNGS: Breath sounds clear to auscultation bilaterally and equal. No wheezes rales or rhonchi. HEART: Regular rate and rhythm without murmurs ABDOMEN: Soft, nontender, nondistended abdomen. No guarding, no rebound. No masses appreciated. Female : deferred Musculoskeletal: Normal range of motion, no pitting or edema. No cyanosis. NEUROLOGICAL: Cranial nerves grossly intact. Normal speech, normal gait. Normal sensory, motor exams PSYCH: Normal mood, normal affect. SKIN: Warm, Dry, normal turgor, no rashes or lesions noted. - INFECTION CONTROL TRAVEL OUTSIDE OF THE [place] IN LAST 30 DAYS: No Course - Re-evaluation Re-evalutation: Patient has clear and equal lung sounds bilaterally. Patient has point tenderness over her left ribs on the posterior surface. Likely bruised ribs. Chest x-ray was performed and there are no rib fractures or pneumothorax. Patient will be discharged home in stable condition. - Vital Signs Vital signs: Temp Pulse Resp BP Pulse Ox 98.5 F 101 H 18 132/90 H 99 03/31/18 22:49 03/31/18 22:49 03/31/18 22:49 03/31/18 22:49 03/31/18 22:49 Discharge - Discharge Clinical Impression: Rib pain on left side Condition: Stable Disposition: HOME, SELF-CARE Additional Instructions: Rib Injuries and Fractures You have been diagnosed as having either bruised rib. These two injuries are treated in the same way. It will usually take four to six weeks for these injured ribs to heal. Sometimes, rib belts or anesthetic injections of the chest wall help reduce the pain. If you are using a rib belt, you should cough or take a deep breath at least every hour or two to prevent lung complications. You should not engage in any strenuous physical activity until released by your physician. The usual rule is "if it hurts, don't do it." Rib fractures can lead to serious lung complications including lung collapse, hemorrhage, and pneumonia. You should call the physician or return at once if any of the following occur: (1) Fever or chills. (2) Persistent cough, coughing up blood, or shortness of breath. (3) Increasing pain. (4) Weakness, lightheadedness, or fainting. Your x-ray today was negative for any acute fracture. You do not have a fractured rib or a collapsed lung. You may have bruised the rib however which is causing you to have the sensation of shortness of breath due to the pain. You may use a pillow to splint the area, Motrin every 6 hours, alternate ice and heat to the area. Follow-up with your primary care in the next 3-5 days for follow-up, sooner if your symptoms worsen. It is very important to try to continue to take full breaths to keep your lung expanded. Prescriptions: Lidocaine [Lidoderm 5% (700 mg) Transdermal Patch] 1 patch TP DAILY #15 adh..patch
[2018-04-01] MEDS ORDERED: LIDOCAINE 5% (700 MG) TRANSDERMAL ADH..PATCH TP ONE (01:29)
[2018-04-01 01:35] VITALS: BP 124/72
== END 2018-04-01 01:35 | disposition home or self-care (01) ==
LOC: ER 22:33
DX: R07.81 Pleurodynia (principal); F17.200 Nicotine dependence, unspecified, uncomplicated
CPT/HCPCS: 71111; 99283

== ENCOUNTER 2020-01-17 01:05 | Inpatient (IN) | payer SELFPAY ==
[2020-01-17] MEDS ORDERED: VANCOMYCIN HCL INJ 1000 MG VIAL IV ONE (02:52)
[2020-01-17] MEDS ORDERED: NORMAL SALINE 1000 ML 1,000 ML IV ONE (02:53)
--- NOTE | 2020-01-17 02:55 | ER Document Report ---
ED Medical Screen (RME) - General Chief Complaint: Neck Problem Stated Complaint: NECK PAIN Time Seen by Provider: 01/17/20 02:50 Mode of Arrival: Ambulatory Information source: Patient Notes: 34-year-old female patient presents the emergency department for evaluation of a possible abscess to the left side of her neck. Patient is an IV drug user, states she injected cocaine to this area 4 days ago. She is very tearful, in obvious distress, has limited range of motion to her neck and is in quite a bit of pain. Patient reports her only other drug use is marijuana. She denies any meth or heroin. She is unsure if she has had a fever but has had chills and has not eaten in the last several days. On exam she has a large tender erythematous area on the left lateral neck. I have greeted and performed a rapid initial assessment of this patient. A comprehensive ED assessment and evaluation of the patient, analysis of test results and completion of the medical decision making process will be conducted by additional ED providers. I have specifically instructed the patient or family members with the patient to immediately return to any nursing staff should anything change in the patient's condition or with their chief complaint. TRAVEL OUTSIDE OF THE [place] IN LAST 30 DAYS: No - Related Data Allergies/Adverse Reactions: Sulfa (Sulfonamide Antibiotics) Allergy (Verified 12/20/17 15:52) Past Medical History Renal/ Medical History: Reports: Hx Ovarian Cysts. Denies: Hx Peritoneal Dialysis Musculoskeltal Medical History: Reports Hx Musculoskeletal Trauma - fractured foot, shoulder dislocation, fractured finger Psychiatric Medical History: Reports: Hx Anxiety, Hx Bipolar Disorder, Hx Depression, Hx Schizophrenia Traumatic Medical History: Reports: Hx Fractures Past Surgical History: Reports: Hx Orthopedic Surgery - Left fifth finger was pinned on 04/02/2015. - Immunizations Immunizations up to date: Yes Hx Diphtheria, Pertussis, Tetanus Vaccination: Yes Physical Exam - Vital signs Vitals: Temp Pulse Resp BP Pulse Ox 98.7 F 98 16 132/78 H 99 01/17/20 01:10 01/17/20 01:10 01/17/20 01:10 01/17/20 01:10 01/17/20 01:10 Course - Vital Signs Vital signs: Temp Pulse Resp BP Pulse Ox 98.7 F 98 16 132/78 H 99 01/17/20 01:01/17/20 01:01/17/20 01:01/17/20 01:01/17/20 01:10
--- NOTE | 2020-01-17 03:13 | ER Document Report ---
ED General - General Chief Complaint: Neck Problem Stated Complaint: NECK PAIN Time Seen by Provider: 01/17/20 02:50 Mode of Arrival: Ambulatory Information source: Patient Notes: Jose YOON notes 34-year-old female patient presents the emergency department for evaluation of a possible abscess to the left side of her neck. Patient is an IV drug user, states she injected cocaine to this area 4 days ago. She is very tearful, in obvious distress, has limited range of motion to her neck and is in quite a bit of pain. Patient reports her only other drug use is marijuana. She denies any meth or heroin. She is unsure if she has had a fever but has had chills and has not eaten in the last several days. On exam she has a large tender erythematous area on the left lateral neck. my notes 34-year-old female presents with left anterior triangle abscess status post subcutaneous cocaine injection. Patient reports she has been using cocaine now for 8 months. She reports she stopped for 3 to 4 years with abstinence but restarted 8 months ago. She actually began using subcutaneous cocaine injection 5 years ago. Patient also smokes cigarettes 1 pack/day but denies any alcohol use. She thought injecting her neck would increase the static effects of the injectable cocaine. She denies any history of any abscesses but now has a very tender left anterior triangle abscess has a 4 cm diameter erythema. TRAVEL OUTSIDE OF THE [place] IN LAST 30 DAYS: No - HPI Onset: This morning Onset/Duration: Sudden, Persistent, Worse Quality of pain: Achy Severity: Moderate Pain Level: 3 Associated symptoms: Headache Exacerbated by: Movement Relieved by: Denies Similar symptoms previously: No Recently seen / treated by doctor: No - Related Data Allergies/Adverse Reactions: Sulfa (Sulfonamide Antibiotics) Allergy (Verified 12/20/17 15:52) Past Medical History - General Information source: Patient - Social History Smoking Status: Current Every Day Smoker Cigarette use (# per day): Yes Chew tobacco use (# tins/day): No Smoking Education Provided: Yes Frequency of alcohol use: None Drug Abuse: Cocaine Lives with: Family Family History: Reviewed & Not Pertinent Patient has suicidal ideation: No Patient has homicidal ideation: No Renal/ Medical History: Reports: Hx Ovarian Cysts. Denies: Hx Peritoneal Dialysis Musculoskeletal Medical History: Reports Hx Musculoskeletal Trauma - fractured foot, shoulder dislocation, fractured finger Psychiatric Medical History: Reports: Hx Anxiety, Hx Bipolar Disorder, Hx Depression, Hx Schizophrenia Traumatic Medical History: Reports: Hx Fractures Past Surgical History: Reports: Hx Orthopedic Surgery - Left fifth finger was pinned on 04/02/2015. - Immunizations Immunizations up to date: Yes Hx Diphtheria, Pertussis, Tetanus Vaccination: Yes Review of Systems - Review of Systems Constitutional: No symptoms reported EENT: See HPI, Throat pain Cardiovascular: No symptoms reported Respiratory: No symptoms reported Gastrointestinal: No symptoms reported Genitourinary: No symptoms reported Female Genitourinary: No symptoms reported Musculoskeletal: No symptoms reported Skin: No symptoms reported Hematologic/Lymphatic: No symptoms reported Neurological/Psychological: No symptoms reported Physical Exam - Vital signs Vitals: Temp Pulse Resp BP Pulse Ox 98.7 F 98 16 132/78 H 99 01/17/20 01:01/17/20 01:01/17/20 01:01/17/20 01:01/17/20 01:10 Interpretation: Normal - General General appearance: Anxious - HEENT Head: Normocephalic, Atraumatic Eyes: Normal Pupils: PERRL Sinus: Normal Nasal: Purulent discharge Mouth/Lips: Normal Mucous membranes: Normal Pharynx: Normal Neck: Anterior cervical chain, Lymphadenopathy, Other - Abscess to proximal neck around sternocleidomastoid insertion area. This abscess is around 4 cm diameter. - Respiratory Respiratory status: No respiratory distress Chest status: Nontender Breath sounds: Normal Chest palpation: Normal - Cardiovascular Rhythm: Regular Heart sounds: Normal auscultation Murmur: No - Abdominal Inspection: Normal Distension: No distension Bowel sounds: Normal Tenderness: Nontender Organomegaly: No organomegaly - Rectal Notes: deferred - Genitourinary Biman[place] exam: Other - deferred - Back Back: Normal - Extremities General upper extremity: Normal inspection - Neurological Neuro grossly intact: Yes Cognition: Normal Orientation: AAOx4 Fabian Coma Scale Eye Opening: Spontaneous [place] Coma Scale Verbal: Oriented [place] Coma Scale Motor: Obeys Commands Fabian Coma Scale Total: 15 Speech: Normal Motor strength normal: LUE, RUE, LLE, RLE Sensory: Normal - Psychological Associated symptoms: Normal affect - Skin Skin Temperature: Warm Skin Moisture: Dry Skin irregularity: Erythema - as per hpi Course - Vital Signs Vital signs: Temp Pulse Resp BP Pulse Ox 98.7 F 98 15 132/78 H 98 01/17/20 03:00 01/17/20 01:10 01/17/20 03:24 01/17/20 01:10 01/17/20 03:28 - Laboratory Result Diagrams: 01/17/20 02:49 01/17/20 02:49 Laboratory results interpreted by me: 01/17/20 01/17/20 02:49 02:49 WBC 12.3 H Hgb 11.0 L Hct 33.4 L MCV 77 L MCH 25.3 L RDW 15.4 H Lymph % (Auto) 12.3 L Absolute Neuts (auto) 10.1 H Seg Neutrophils % 82.4 H Total Protein 8.3 H Critical Care Note - Critical Care Note Comments: Dr. Cordell mesa called and he advised Michael. Dr Gaxiola saw pt at 0500 and accepts pt; needs covid Discharge - Discharge Clinical Impression: Abscess of skin of neck, cocaine injection Condition: Fair Disposition: ADMITTED INPATIENT Admitting Provider: Michael
[2020-01-17 03:16] LABS: ABSOLUTE EOSINOPHILS # (AUTO) 0.1 10^3/uL (0.0-0.6); ABSOLUTE LYMPHOCYTES (AUTO) 1.5 10^3/uL (0.5-4.7); ABSOLUTE MONOCYTES (AUTO) 0.5 10^3/uL (0.1-1.4); ABSOLUTE NEUT (AUTO) 10.1 10^3/uL (1.7-8.2); BASOPHILS % (AUTO) 0.3 % (0-2); EOSINOPHILS % (AUTO) 0.7 % (0-6); HEMATOCRIT 33.4 % (36.0-47.0); LYMPHOCYTES % (AUTO) 12.3 % (13-45); MEAN CORPUSCULAR HEMOGLOBIN 25.3 pg (27.0-33.4); MEAN CORPUSCULAR VOLUME 77 fl (80-97); MONOCYTES % (AUTO) 4.3 % (3-13); PLATELET COUNT 406 10^3/uL (150-450); RED BLOOD COUNT 4.36 10^6/uL (3.72-5.28); RED CELL DISTRIBUTION WIDTH 15.4 % (11.5-14.0); SEGMENTED NEUTROPHILS % (AUTO) 82.4 % (42-78); TOTAL CELLS COUNTED % (AUTO) 100 %; WHITE BLOOD COUNT 12.3 10^3/uL (4.0-10.5)
[2020-01-17 03:21] LABS: ALBUMIN 4.6 g/dL (3.5-5.0); ALKALINE PHOSPHATASE 79 U/L (38-126); ANION GAP 9 (5-19); ASPARTATE AMINO TRANSFERASE 21 U/L (14-36); BILIRUBIN,TOTAL 0.3 mg/dL (0.2-1.3); BLOOD UREA NITROGEN 11 mg/dL (7-20); CALCIUM 9.8 mg/dL (8.4-10.2); CARBON DIOXIDE 28 mmol/L (22-30); CHLORIDE 102 mmol/L (98-107); GLUCOSE 106 mg/dL (75-110); TOTAL PROTEIN 8.3 g/dL (6.3-8.2)
--- NOTE | 2020-01-17 03:28 | RADIOLOGY REPORT (SQ) ---
CT neck with contrast on 01/17/2020 at 3:00 AM CLINICAL INDICATION: IV drug user injected four days ago, abscess TECHNIQUE: Multiple axial images are obtained throughout the neck following the administration of IV contrast, 75 ml of Omnipaque 350contrast was administered intravenously without complication. This exam was performed according to our departmental dose-optimization program, which includes automated exposure control, adjustment of the mA and/or kV according to patient size and/or use of iterative reconstruction technique. Total DLP is 237.67 mGy*cm. COMPARISON: None FINDINGS: The epiglottis and airway is unremarkable. There is no prevertebral soft tissue swelling. There is irregular fluid collection with peripheral enhancement along and within the anterolateral aspect of the left sternocleidomastoid muscle inferiorly in the left lower neck consistent with an abscess. This measures approximately 2.2 x 1.9 x 3.3 cm. There is adjacent soft tissue swelling and fat stranding consistent with cellulitis in the left neck as well. No other fluid collection to suggest abscess is noted. The upper lungs are clear. There is no adenopathy in the neck by CT size criteria. No bony abnormality is noted. IMPRESSION: Findings consistent with a left neck cellulitis with associated abscess along and within the lower left sternocleidomastoid muscle.
[2020-01-17] MEDS ORDERED: MORPHINE SULFATE 10 MG/ML INJ IV ONE (03:30)
[2020-01-17] MEDS ORDERED: PROMETHAZINE HCL INJ 25 MG/1 ML VIAL IV ONE (03:30)
[2020-01-17] MEDS ORDERED: CEFTRIAXONE INJ 1000 MG VIAL IV ONE (03:31)
--- NOTE | 2020-01-17 05:39 | PDOC H&P ---
History of Present Illness Patient complains of: Left neck pain History of Present Illness: CHUCK GONZALEZ is a 34 year old female Presents emergency department complaining of left neck pain, swelling, inability to rotate her neck. She admits to injecting cocaine into her neck. She has an 8-month history of cocaine abuse by her report. She was seen in the emergency department she does not have swelling, redness and extreme tenderness to the mid and left lower neck. White blood cell count elevated 12,000. CT scan of the neck revealed a abscess involving sternocleidomastoid muscle. Surgery was consulted, patient was admitted to the acute care service with hospitalist consulting for substance abuse and psychiatric issues. Past Medical History Past Medical History: Substance abuse, trauma, psychiatric issues including anxiety, bipolar disorder and schizophrenia Psychiatric Medical History: Reports: Bipolar Disorder, Depression Hematology: Denies: Anemia Past Surgical History Past Surgical History: Pinning of finger status post fracture Past Surgical History: Reports: Orthopedic Surgery - Left fifth finger was pinned on 04/02/2015. Social History Information Source: Patient Lives with: Family Smoking Status: Current Every Day Smoker Electronic Cigarette use?: No Frequency of Alcohol Use: None Hx Recreational Drug Use: No Drugs: None, Cocaine Hx Prescription Drug Abuse: No Past Social History Note: Patient with history of substance abuse, marijuana, cocaine Family History Family History: None, Reviewed & Not Pertinent Parental Family History Reviewed: No Children Family History Reviewed: No Sibling(s) Family History Reviewed.: No Medication/Allergy Home Medications: Oxycodone HCl/Acetaminophen [Percocet 5-325 mg Tablet] 1 - 2 tab PO ASDIR PRN #15 tablet 02/05/16 Amox Tr/Potassium Clavulanate [Augmentin 875-125 mg Tablet] 1 tab PO BID 02/07/16 Penicillin V Potassium [Penicillin Vk 500 mg Tablet] 500 mg PO BID #20 tablet Ibuprofen [Motrin 600 Mg Tablet] 600 mg PO TID #15 tablet 02/13/18 Lidocaine [Lidoderm 5% (700 mg) Transdermal Patch] 1 patch TP DAILY #15 adh..patch 04/01/18 Allergies/Adverse Reactions: Sulfa (Sulfonamide Antibiotics) Allergy (Verified 12/20/17 15:52) Review of Systems Constitutional: ABSENT: chills, fever(s), headache(s), weight gain, weight loss Eyes: ABSENT: visual disturbances Ears: ABSENT: hearing changes Cardiovascular: ABSENT: chest pain, dyspnea on exertion, edema, orthropnea, palpitations Respiratory: ABSENT: cough, hemoptysis Genitourinary: ABSENT: dysuria, hematuria Neurological: ABSENT: abnormal gait, abnormal speech, confusion, dizziness, foc al weakness, syncope Psychiatric: PRESENT: anxiety, other - Bipolar disorder, schizophrenia Physical Exam Vital Signs: Temp Pulse Resp BP Pulse Ox 98.7 F 98 15 132/78 H 98 01/17/20 03:00 01/17/20 01:10 01/17/20 03:24 01/17/20 01:10 01/17/20 03:28 Intake & Output 01/15/20 01/16/20 01/17/20 06:59 06:59 06:59 Intake Total 1000 Balance 1000 Weight 53.9 kg General appearance: PRESENT: other - Moderate distress Head exam: PRESENT: normocephalic Eye exam: PRESENT: EOMI Ear exam: PRESENT: normal external ear exam Mouth exam: PRESENT: dry mucosa Neck exam: PRESENT: other - Most prominent down to the level above the clavicle unable to rotate neck; swollen, erythematous leftanterior lateral neck along the sternocleidomastoid Cardiovascular exam: PRESENT: RRR Pulses: PRESENT: normal carotid pulses, normal radial pulses, normal femoral pulses GI/Abdominal exam: PRESENT: soft Rectal exam: PRESENT: deferred Extremities exam: PRESENT: full ROM Musculoskeletal exam: PRESENT: full ROM Neurological exam: PRESENT: oriented to person, oriented to place, oriented to time, oriented to situation Psychiatric exam: PRESENT: other - Tearful, anxious, scared Skin exam: PRESENT: dry Results Laboratory Results: 01/17/20 02:49 01/17/20 02:49 01/17/20 01/17/20 01/17/20 02:49 02:49 03:56 WBC 12.3 H RBC 4.36 Hgb 11.0 L Hct 33.4 L MCV 77 L MCH 25.3 L MCHC 33.0 RDW 15.4 H Plt Count 406 Seg Neutrophils % 82.4 H Sodium 139.0 Potassium 4.0 Chloride 102 Carbon Dioxide 28 Anion Gap 9 BUN 11 Creatinine 0.63 Est GFR ( Amer) > 60 Glucose 106 Lactic Acid 0.9 Calcium 9.8 Total Bilirubin 0.3 AST 21 Alkaline Phosphatase 79 Total Protein 8.3 H Albumin 4.6 Impressions: Soft Tissue Neck CT 01/17/20 02:50 IMPRESSION: Findings consistent with a left neck cellulitis with associated abscess along and within the lower left sternocleidomastoid muscle. Assessment & Plan - Diagnosis (1) Abscess of skin of neck Is this a current diagnosis for this admission?: Yes Plan: Impression: Acute cellulitis and abscess involving the left sternocleidomastoid secondary to intravenous injection of cocaine 34-year-old female with history of psychiatric issues Recommendations: 1. Admit, keep n.p.o., IV fluids, intravenous antibiotics 2. We will post patient for operative debridement, drainage, possible drain placement by Dr. El Miner, Thursday, January 16, main operating room. 3. We will check COVID status this morning 4. I have asked the hospitalist to consult on this patient, assist with the management of substance abuse and psychiatric issues (2) Substance abuse Is this a current diagnosis for this admission?: Yes (3) Anxiety disorder Is this a current diagnosis for this admission?: Yes (4) Abuse of smoked substance Is this a current diagnosis for this admission?: Yes - Time Time Spent: 50 to 70 Minutes Critical Time spent with patient: 15-24 minutes Medications reviewed and adjusted accordingly: Yes Anticipated discharge: Home - Inpatient Certification Based on my medical assessment, after consideration of the patient's comorbidities, presenting symptoms, or acuity I expect that the services needed warrant INPATIENT care.: Yes I certify that my determination is in accordance with my understanding of Medicare's requirements for reasonable and necessary INPATIENT services [42 CFR 412.3e].: Yes Medical Necessity: Need For IV Fluids, Need for Pain Control, Need for IV Antibiotics, Need for Surgery
[2020-01-17] MEDS ORDERED: CEFAZOLIN 1 GM/D5W RTU 1 GM/50 ML RTUPB IV SCH (06:00)
[2020-01-17] MEDS ORDERED: NICOTINE 21 MG/24 HR PATCH.TD24 TD PRN (06:32)
[2020-01-17] MEDS: LORAZEPAM INJ 2 MG/1 ML VIAL IV PRN ×3 (07:05→20:53)
[2020-01-17] MEDS ORDERED: FENTANYL CITRATE INJ/PF 100 MCG/2 ML AMPUL ONE (09:17)
[2020-01-17] MEDS ORDERED: MIDAZOLAM 2 MG/2 ML INJ ONE (09:17)
[2020-01-17] MEDS ORDERED: BUPIVACAINE HCL 0.25 % INJ/PF (2.5 MG/1 ML) 30 ML VIAL ONE (09:23)
[2020-01-17] MEDS ORDERED: BUPIVACAINE HCL 0.25% /EPINEPHRINE INJ/PF 30 ML SDV ONE (09:24)
[2020-01-17] MEDS ORDERED: LIDOCAINE 2% INJ-PF (20 MG/ML) 2 ML AMPUL ONE (10:00)
[2020-01-17] MEDS ORDERED: ONDANSETRON HCL INJ/PF 4 MG/2 ML SDV ONE (10:00)
[2020-01-17] MEDS ORDERED: ROCURONIUM BROMIDE INJ 50 MG/5 ML VIAL IV ONE (10:00)
[2020-01-17] MEDS ORDERED: SUCCINYLCHOLINE CHLORIDE INJ 200 MG/10 ML VIAL ONE (10:00)
[2020-01-17] MEDS ORDERED: MEPERIDINE HCL/PF INJ 25 MG/1 ML DISP.SYRIN IV PRN (11:08)
[2020-01-17] MEDS ORDERED: FENTANYL CITRATE INJ/PF 100 MCG/2 ML AMPUL IV PRN ×3 (11:08)
[2020-01-17] MEDS ORDERED: DIPHENHYDRAMINE HCL 50 MG/ML VIAL IV PRN (11:08)
--- NOTE | 2020-01-17 11:08 | Operative Report ---
Nonrecallable Operative Report DATE OF SURGERY: 01/17/20 PREOPERATIVE DIAGNOSIS: Left neck abscess POSTOPERATIVE DIAGNOSIS: Left neck abscess OPERATION: Incision and drainage of left neck abscess SURGEON: PAOLA RUSSO ANESTHESIA: GA TISSUE REMOVED OR ALTERED: Approximately 30 cc of purulent material from the left neck COMPLICATIONS: None ESTIMATED BLOOD LOSS: 20 cc INTRAOPERATIVE FINDINGS: See note PROCEDURE: Procedure note; patient was brought to the operating when awake alert stable co ndition placed on the operative table supine position induced under general anesthesia and intubated. The left neck was prepped and draped in usual sterile fashion. After appropriate timeout site verification procedure commenced. In the mid left neck along the anterior sternocleidomastoid muscle there was a palpable swelling a transverse incision was made directly in the skin crease curvilinear over the sternocleidomastoid muscle muscle in the left lateral neck. Dissection was carried down through subcutaneous tissue with Bovie cautery dividing the platysma muscle with Bovie cautery identifying the external jugular vein which was doubly ligated with 3-0 Vicryl suture. After dividing the external jugular vein the palpable abscess cavity was entered in the body of the sternocleidomastoid muscle. Approximately 2025 cc of purulent material was drained sent for culture and sensitivity. The cavity was digitally dissected and opened widely and then irrigated with normal saline suctioned dry hemostasis noted to be intact the cavity was then packed with an iodoform gauze. Sterile dressing was applied which completed the procedure. The patient was awakened in the operative extubated transferred recovery in stable condition no complications.
[2020-01-17] MEDS ORDERED: VANCOMYCIN HCL INJ 1000 MG VIAL IV SCH (13:45)
--- NOTE | 2020-01-17 13:54 | PDOC CONSULTATION ---
Consultation Consult Date: 01/17/20 Attending physician:: ROSETTA CARDOZA Provider Consulted: JUVE HOFFMAN Consult reason:: substance abuse, psych issues History of Present Illness Admission Date/PCP: 01/17/20 05:30 Patient complains of: left neck pain History of Present Illness: CHUCK GONZALEZ is a 34 year old female with history of bipolar disorder, ? Schizophrenia, and substance abuse, who presents to the hospital with complaints of swelling in the left side of her neck which started yesterday. Patient admits to shooting cocaine into her neck a few days ago and subsequently developing pain and erythema in that region. Last used cocaine 3 to 4 days ago. Denies any heroin use. Was expressing fever and chills as well as malaise prompting her to come to the hospital for evaluation. In the hospital, patient was evaluated by surgery and taken for an incision and drainage of left neck abscess. Hospitalist service consulted for management of patient's comorbid psychiatric conditions and substance abuse. Past Medical History Cardiac Medical History: Denies: Coronary Artery Disease, Hypertension Pulmonary Medical History: Denies: Asthma, Chronic Obstructive Pulmonary Disease (COPD) EENT Medical History: Denies: Cataracts, Ears - Hearing aids Neurological Medical History: Denies: Multiple Sclerosis, Seizures Endocrine Medical History: Denies: Diabetes Mellitus Type 1, Hyperthyroidism, Hypothyroidism, Obesity Renal/ Medical History: Denies: Chronic Kidney Disease, Nephrolithiasis Malignancy Medical History: Reports: None GI Medical History: Denies: Cirrhosis, Hepatitis Musculoskeltal Medical History: Denies: Arthritis, Fibromyalgia Skin Medical History: Denies: Eczema, Psoriasis Psychiatric Medical History: Reports: Bipolar Disorder, Depression, General Anxiety Disorder, Substance Abuse, Tobacco Dependency Denies: Alcohol Dependency Traumatic Medical History: Reports: None Hematology: Denies: Anemia, Bleeding Tendencies Infectious Medical History: Reports: None Past Surgical History Past Surgical History: Reports: Orthopedic Surgery - Left fifth finger was pinned on 04/02/2015. Social History Lives with: Family Smoking Status: Current Some Day Smoker Electronic Cigarette use?: No Frequency of Alcohol Use: Occasional Hx Recreational Drug Use: Yes Drugs: Cocaine, Marijuana Hx Prescription Drug Abuse: No - Advance Directive Resuscitation Status: Full Code Family History Family History: denies: CAD, DM, Hypertension, Malignancy Parental Family History Reviewed: Yes Children Family History Reviewed: NA Sibling(s) Family History Reviewed.: NA Medication/Allergy Home Medications: No Home Medications 01/17/20 Allergies/Adverse Reactions: Sulfa (Sulfonamide Antibiotics) Allergy (Verified 12/20/17 15:52) Review of Systems Constitutional: PRESENT: chills, fever(s) Eyes: ABSENT: visual disturbances Nose, Mouth, and Throat: PRESENT: headache(s) - occasional Cardiovascular: ABSENT: chest pain Respiratory: ABSENT: cough, dyspnea Gastrointestinal: ABSENT: abdominal pain Genitourinary: ABSENT: dysuria Musculoskeletal: ABSENT: back pain Integumentary: ABSENT: diaphoresis Neurological: ABSENT: dizziness Psychiatric: PRESENT: anxiety Endocrine: ABSENT: cold intolerance Physical Exam Vital Signs: Temp Pulse Resp BP Pulse Ox 99.8 F 87 17 137/81 H 99 01/17/20 11:48 01/17/20 11:48 01/17/20 11:48 01/17/20 11:48 01/17/20 11:48 Intake & Output 01/16/20 01/17/20 01/18/20 06:59 06:59 06:59 Intake Total 1000 1250 Output Total 10 Balance 1000 1240 Weight 53.9 kg 53.2 kg General appearance: PRESENT: no acute distress, cooperative Head exam: PRESENT: normocephalic Eye exam: PRESENT: EOMI Neck exam: PRESENT: other - Significant significant tenderness and redness over the left side of her neck with induration noted. ABSENT: JVD Respiratory exam: PRESENT: clear to auscultation ozzie, unlabored. ABSENT: tachypnea, wheezes Cardiovascular exam: PRESENT: RRR, +S1, +S2. ABSENT: tachycardia GI/Abdominal exam: PRESENT: soft. ABSENT: rebound, rigid, tenderness Extremities exam: PRESENT: other - No evidence of janeway lesions or Osler nodes in her palms. ABSENT: calf tenderness Neurological exam: PRESENT: alert, awake, oriented to person, oriented to place, oriented to time Psychiatric exam: ABSENT: agitated, anxious Focused psych exam: ABSENT: pressured speech Skin exam: ABSENT: jaundice Results Laboratory Results: 01/17/20 02:49 01/17/20 02:49 01/17/20 01/17/20 01/17/20 02:49 02:49 03:56 WBC 12.3 H RBC 4.36 Hgb 11.0 L Hct 33.4 L MCV 77 L MCH 25.3 L MCHC 33.0 RDW 15.4 H Plt Count 406 Seg Neutrophils % 82.4 H Sodium 139.0 Potassium 4.0 Chloride 102 Carbon Dioxide 28 Anion Gap 9 BUN 11 Creatinine 0.63 Est GFR ( Amer) > 60 Glucose 106 Lactic Acid 0.9 Calcium 9.8 Total Bilirubin 0.3 AST 21 Alkaline Phosphatase 79 Total Protein 8.3 H Albumin 4.6 Serum HCG, Qual 01/17/20 09:12 WBC RBC Hgb Hct MCV MCH MCHC RDW Plt Count Seg Neutrophils % Sodium Potassium Chloride Carbon Dioxide Anion Gap BUN Creatinine Est GFR ( Amer) Glucose Lactic Acid Calcium Total Bilirubin AST Alkaline Phosphatase Total Protein Albumin Serum HCG, Qual NEGATIVE Impressions: Soft Tissue Neck CT 01/17/20 02:50 IMPRESSION: Findings consistent with a left neck cellulitis with associated abscess along and within the lower left sternocleidomastoid muscle. Assessment and Plan - Diagnosis (1) Cellulitis and abscess of neck Is this a current diagnosis for this admission?: Yes Plan: CT neck reviewed which shows cellulitis with abscess in the left side of the neck. Secondary to IV drug abuse. Blood cultures have been obtained. CBC showing leukocytosis. Patient was taken to the OR for incision and debridement by surgery. Given abscess and high MRSA risk, I have changed the antibiotics to IV vancomycin. Pain control with IV morphine. Wound dressing and wound management as per surgery I will recommend allowing for blood cultures to be negative for 48 hours before discharge as patient is high risk for invasive bacteremia and may need evaluation for endocarditis if she turns out to be bacteremic. (2) Bipolar disorder with depression Is this a current diagnosis for this admission?: Yes Plan: Patient states that she has been off all medications for the past 2 years because she did not like the side effects. She currently does not follow with a psychiatrist. Currently she does not appear decompensated but I will defer to psychiatrist, who was consulted, to determine psych medications and evaluate her psychiatric conditions. (3) Substance abuse Is this a current diagnosis for this admission?: Yes Plan: Uses marijuana and cocaine. Counseled on cessation of substance abuse. No current evidence of withdrawal. Will monitor. Ativan as needed for anxiety. (4) Anxiety disorder Qualifiers: Anxiety disorder type: unspecified anxiety disorder Qualified Code(s): F41.9 - Anxiety disorder, unspecified Is this a current diagnosis for this admission?: Yes Plan: Ativan as needed for anxiety. (5) Tobacco use disorder, continuous Is this a current diagnosis for this admission?: Yes Plan: Counseled on smoking cessation - Time Time Spent with patient: 35 or more minutes
[2020-01-17] MEDS: MORPHINE SULFATE 10 MG/ML INJ IV PRN ×2 (14:52→19:57)
[2020-01-17 16:04] LABS: APPEARANCE,URINE SLIGHTLY-CLOUDY; BILIRUBIN,URINE NEGATIVE (NEGATIVE); CALCIUM OXALATE CRYSTALS,URINE RARE /HPF; COLOR,URINE YELLOW; GLUCOSE, URINE NEGATIVE (NEGATIVE); KETONES,URINE NEGATIVE (NEGATIVE); LEUKOCYTE ESTERASE,URINE NEGATIVE (NEGATIVE); NITRITE,URINE NEGATIVE (NEGATIVE); PROTEIN,URINE NEGATIVE (NEGATIVE); URINE SPECIFIC GRAVITY 1.012; UROBILINOGEN,URINE NEGATIVE mg/dL (<2.0)
[2020-01-17 16:20] LABS: URINE AMPHETAMINES SCREEN NEGATIVE; URINE BARBITURATES SCREEN NEGATIVE; URINE METHADONE SCREEN NEGATIVE; URINE PHENCYCLIDINE SCREEN NEGATIVE
[2020-01-17 16:25] LABS: URINE BENZODIAZEPINES SCREEN UNCONFIRMED POSITIVE; URINE COCAINE SCREEN UNCONFIRMED POSITIVE; URINE MARIJUANA (THC) SCREEN UNCONFIRMED POSITIVE
[2020-01-17] MEDS: VANCOMYCIN HCL 750 MG in DEXTROSE 5%-WATER 250 ML IV SCH (17:41)
[2020-01-17] MEDS: RINGERS SOLUTION,LACTATED 1,000 ML IV PRN (19:56)
[2020-01-18] MEDS: MORPHINE SULFATE 10 MG/ML INJ IV PRN ×3 (00:43→10:53)
[2020-01-18] MEDS: LORAZEPAM INJ 2 MG/1 ML VIAL IV PRN (02:08)
[2020-01-18] MEDS: RINGERS SOLUTION,LACTATED 1,000 ML IV PRN (04:44)
[2020-01-18 05:19] LABS: ABSOLUTE BASOPHILS # (AUTO) 0.1 10^3/uL (0.0-0.2); ABSOLUTE EOSINOPHILS # (AUTO) 0.1 10^3/uL (0.0-0.6); ABSOLUTE MONOCYTES (AUTO) 0.7 10^3/uL (0.1-1.4); ABSOLUTE NEUT (AUTO) 6.7 10^3/uL (1.7-8.2); BASOPHILS % (AUTO) 0.8 % (0-2); EOSINOPHILS % (AUTO) 1.3 % (0-6); HEMATOCRIT 29.9 % (36.0-47.0); HEMOGLOBIN 9.9 g/dL (12.0-15.5); LYMPHOCYTES % (AUTO) 20.9 % (13-45); MEAN CORPUSCULAR HEMOGLOBIN 25.1 pg (27.0-33.4); MEAN CORPUSCULAR HGB CONC 33.1 g/dL (32.0-36.0); MEAN CORPUSCULAR VOLUME 76 fl (80-97); MONOCYTES % (AUTO) 7.4 % (3-13); PLATELET COUNT 354 10^3/uL (150-450); RED BLOOD COUNT 3.94 10^6/uL (3.72-5.28); RED CELL DISTRIBUTION WIDTH 15.3 % (11.5-14.0); SEGMENTED NEUTROPHILS % (AUTO) 69.6 % (42-78); TOTAL CELLS COUNTED % (AUTO) 100 %; WHITE BLOOD COUNT 9.6 10^3/uL (4.0-10.5)
[2020-01-18 05:41] LABS: ANION GAP 7 (5-19); BLOOD UREA NITROGEN 9 mg/dL (7-20); CARBON DIOXIDE 26 mmol/L (22-30); CHLORIDE 102 mmol/L (98-107); GLUCOSE 117 mg/dL (75-110)
[2020-01-18] MEDS: VANCOMYCIN HCL 750 MG in DEXTROSE 5%-WATER 250 ML IV SCH (05:58)
--- NOTE | 2020-01-18 11:01 | PSYCHOLOGICAL NOTE ---
Psych Note - Psych Note Date seen by psych provider: 01/17/20 Time seen by psych provider: 14:00 Psych Note: Reason for Consult; history of mental health and IV Substance abuse 34-year-old female patient presented to [facility] for concerns of a possible abscess to the left side of her neck. Patient is an IV drug user, states she injected cocaine to this area 4 days ago. Patient reportedly has been off psychiatric medications for 2 years. She is currently reporting she is not worried about her mental health because of the pain she is in. Impression/plan: Patient is cleared from acute psychiatric services. Patient is currently uninterested in assistance from the behavioral health team. She reportedly has been of psychiatric medications for 2 years. She is currently not demonstrating any severe psychiatric symptoms (ie psychosis, liliam etc) that are in need acute psychiatric interventions. Starting patient on medications when she is not interested in continuing could cause complications (ie side effects/withdrawal from abruptly stopping psychotropics, decrease efficacy etc). She is here for possible abscess from IV drug use. If patient is interested in assistance for substance abuse treatment or psychiatric treatment please re- consult. Dr. Kramer was consulted on the care and management of this patient; attending physician is in agreement with recommendations and disposition.
[2020-01-18 11:17] VITALS: BP 132/78
--- NOTE | 2020-01-18 12:11 | PDOC DISCHARGE SUMMARY ---
General - Admit/Disc Date/PCP Admission Date/Primary Care Provider: 01/17/20 05:30 Discharge Date: 01/18/20 - Discharge Diagnosis Final Diagnosis: Intramuscular left sternocleidomastoid muscle abscess - Additional Information Resuscitation Status: Full Code Discharge Diet: As Tolerated Discharge Activity: Activity As Tolerated Referrals: PAOLA RUSSO MD [ACTIVE STAFF] - 02/01/20 8:15 am Home Medications: No Home Medications 01/17/20 History of Present Illiness History of Present Illness: CHUCK GONZALEZ is a 34 year old female who noted pains along the left neck area after she injected it with cocaine a few days ago. Hospital Course Hospital Course: Patient admitted on and underwent incision and drainage of left sternocleidomastoid abscess by . A lot of pus was drained and the packing was left which was removed on 01/18/2020. Patient then discharge on p.o. clindamycin 300 mg 3 times a day for a week as well as prescription for Toradol was given. Patient be followed up in the clinic in 2 weeks. Physical Exam Vital Signs: Temp Pulse Resp BP Pulse Ox 100.5 F H 94 16 132/78 H 100 01/18/20 11:16 01/18/20 11:16 01/18/20 11:16 01/18/20 11:16 01/18/20 11:16 Intake & Output 01/17/20 01/18/20 01/19/20 06:59 06:59 06:59 Intake Total 1000 4126 250 Output Total 2160 Balance 1000 1966 250 Weight 53.9 kg 53.2 kg Exam: Left neck I&D site with packing that was removed. No bleeding noted. Results Laboratory Results: WBC 9.6 10^3/uL (4.0-10.5) 01/18/20 04:11 RBC 3.94 10^6/uL (3.72-5.28) 01/18/20 04:11 Hgb 9.9 g/dL (12.0-15.5) L 01/18/20 04:11 Hct 29.9 % (36.0-47.0) L 01/18/20 04:11 MCV 76 fl (80-97) L 01/18/20 04:11 MCH 25.1 pg (27.0-33.4) L 01/18/20 04:11 MCHC 33.1 g/dL (32.0-36.0) 01/18/20 04:11 RDW 15.3 % (11.5-14.0) H 01/18/20 04:11 Plt Count 354 10^3/uL (150-450) 01/18/20 04:11 Lymph % (Auto) 20.9 % (13-45) 01/18/20 04:11 [place] % (Auto) 7.4 % (3-13) 01/18/20 04:11 Eos % (Auto) 1.3 % (0-6) 01/18/20 04:11 Baso % (Auto) 0.8 % (0-2) 01/18/20 04:11 Absolute Neuts (auto) 6.7 10^3/uL (1.7-8.2) 01/18/20 04:11 Absolute Lymphs (auto) 2.0 10^3/uL (0.5-4.7) 01/18/20 04:11 Absolute Monos (auto) 0.7 10^3/uL (0.1-1.4) 01/18/20 04:11 Absolute Eos (auto) 0.1 10^3/uL (0.0-0.6) 01/18/20 04:11 Absolute Basos (auto) 0.1 10^3/uL (0.0-0.2) 01/18/20 04:11 Seg Neutrophils % 69.6 % (42-78) 01/18/20 04:11 Sodium 135.0 mmol/L (137-145) L 01/18/20 04:11 Potassium 4.0 mmol/L (3.6-5.0) 01/18/20 04:11 Chloride 102 mmol/L (98-107) 01/18/20 04:11 Carbon Dioxide 26 mmol/L (22-30) 01/18/20 04:11 Anion Gap 7 (5-19) 01/18/20 04:11 BUN 9 mg/dL (7-20) 01/18/20 04:11 Creatinine 0.69 mg/dL (0.52-1.25) 01/18/20 04:11 Est GFR ( Amer) > 60 (>60) 01/18/20 04:11 Est GFR (MDRD) Non-Af > 60 (>60) 01/18/20 04:11 Glucose 117 mg/dL (75-110) H 01/18/20 04:11 Lactic Acid 0.9 mmol/L (0.7-2.1) 01/17/20 03:56 Calcium 9.0 mg/dL (8.4-10.2) 01/18/20 04:11 Total Bilirubin 0.3 mg/dL (0.2-1.3) 01/17/20 02:49 Direct Bilirubin 0.0 mg/dL (0.0-0.4) 01/17/20 02:49 Neonat Total Bilirubin Not Reportable 01/17/20 02:49 Neonat Direct Bilirubin Not Reportable 01/17/20 02:49 Neonat Indirect Bili Not Reportable 01/17/20 02:49 AST 21 U/L (14-36) 01/17/20 02:49 ALT 11 U/L (<35) 01/17/20 02:49 Alkaline Phosphatase 79 U/L (38-126) 01/17/20 02:49 Total Protein 8.3 g/dL (6.3-8.2) H 01/17/20 02:49 Albumin 4.6 g/dL (3.5-5.0) 01/17/20 02:49 Serum HCG, Qual NEGATIVE (NEGATIVE) 01/17/20 09:12 Urine Color YELLOW 01/17/20 15:45 Urine Appearance SLIGHTLY-CLOUDY 01/17/20 15:45 Urine pH 7.0 (5.0-9.0) 01/17/20 15:45 Ur Specific [place] 1.012 01/17/20 15:45 Urine Protein NEGATIVE mg/dL (NEGATIVE) 01/17/20 15:45 Urine Glucose (UA) NEGATIVE mg/dL (NEGATIVE) 01/17/20 15:45 Urine Ketones NEGATIVE mg/dL (NEGATIVE) 01/17/20 15:45 Urine Blood NEGATIVE (NEGATIVE) 01/17/20 15:45 Urine Nitrite NEGATIVE (NEGATIVE) 01/17/20 15:45 Urine Bilirubin NEGATIVE (NEGATIVE) 01/17/20 15:45 Urine Urobilinogen NEGATIVE mg/dL (<2.0) 01/17/20 15:45 Ur Leukocyte Esterase NEGATIVE (NEGATIVE) 01/17/20 15:45 Urine WBC (Auto) 1 /HPF 01/17/20 15:45 Urine RBC (Auto) 1 /HPF 01/17/20 15:45 Urine Bacteria (Auto) TRACE /HPF 01/17/20 15:45 Squamous Epi Cells Auto 5 /HPF 01/17/20 15:45 Calcium Oxalate Cr Auto RARE /HPF 01/17/20 15:45 Urine Ascorbic Acid NEGATIVE (NEGATIVE) 01/17/20 15:45 Urine Opiates Screen UNCONFIRMED POSITIVE 01/17/20 15:45 Urine Methadone Screen NEGATIVE 01/17/20 15:45 Ur Barbiturates Screen NEGATIVE 01/17/20 15:45 Ur Phencyclidine Scrn NEGATIVE 01/17/20 15:45 Ur Amphetamines Screen NEGATIVE 01/17/20 15:45 U Benzodiazepines Scrn UNCONFIRMED POSITIVE 01/17/20 15:45 Urine Cocaine Screen UNCONFIRMED POSITIVE 01/17/20 15:45 U Marijuana (THC) Screen UNCONFIRMED POSITIVE 01/17/20 15:45 SARS-CoV-2 (PCR) NEGATIVE (NEGATIVE) 01/17/20 07:16 Impressions: Soft Tissue Neck CT 01/17/20 02:50 IMPRESSION: Findings consistent with a left neck cellulitis with associated abscess along and within the lower left sternocleidomastoid muscle. Plan Health Concerns: Patient with IV drug use. Patient claims she is lying in a check herself anything after discharge. Plan of Treatment: Patient advised to wash the wound with soap and water starting tomorrow on a daily basis and just apply dry dressing. Prescription for Clinda and Toradol were given Goals: To heal the wound completely Time Spent: Less than 30 Minutes
== END 2020-01-18 11:52 | disposition home or self-care (01) | DRG 501 ==
LOC: ER 01:05 → UNDOADMIN 05:30 → EH 05:30 → 3W 05:30
PROVIDERS: ATTEND Surgery
PROC: 0KD Muscles, Extraction (ICD-10-PCS; principal; 2020-01-17 10:00)
DX: M60.08 Infective myositis, other site (principal); L03.221 Cellulitis of neck; F31.9 Bipolar disorder, unspecified; F20.9 Schizophrenia, unspecified; F41.9 Anxiety disorder, unspecified; F14.10 Cocaine abuse, uncomplicated; F17.210 Nicotine dependence, cigarettes, uncomplicated; Z88.2 Allergy status to sulfonamides
CPT/HCPCS: 300; 36415; 70491; 80048; 80053; 80307; 81001; 83605; 84703; 85025; 87040; 87070; 87075; 87077; 87205; 87635; C9803; J0330; J0690; J0696; J2060; J2250; J2270; J2405; J2550; J3010; J3370; J3490; J7030; J7060; J7120

== ENCOUNTER 2020-02-04 16:08 | Emergency (ER) | payer OTHER ==
[2020-02-04 16:30] LABS: ABSOLUTE LYMPHOCYTES (AUTO) 0.7 10^3/uL (0.5-4.7); ABSOLUTE MONOCYTES (AUTO) 0.4 10^3/uL (0.1-1.4); ABSOLUTE NEUT (AUTO) 4.7 10^3/uL (1.7-8.2); BASOPHILS % (AUTO) 0.5 % (0-2); EOSINOPHILS % (AUTO) 0.3 % (0-6); HEMATOCRIT 28.1 % (36.0-47.0); HEMOGLOBIN 9.6 g/dL (12.0-15.5); LYMPHOCYTES % (AUTO) 12.7 % (13-45); MEAN CORPUSCULAR HEMOGLOBIN 25.9 pg (27.0-33.4); MEAN CORPUSCULAR HGB CONC 34.3 g/dL (32.0-36.0); MEAN CORPUSCULAR VOLUME 76 fl (80-97); MONOCYTES % (AUTO) 6.7 % (3-13); PLATELET COUNT 314 10^3/uL (150-450); RED BLOOD COUNT 3.71 10^6/uL (3.72-5.28); RED CELL DISTRIBUTION WIDTH 15.5 % (11.5-14.0); SEGMENTED NEUTROPHILS % (AUTO) 79.8 % (42-78); TOTAL CELLS COUNTED % (AUTO) 100 %; WHITE BLOOD COUNT 5.8 10^3/uL (4.0-10.5)
[2020-02-04 16:51] LABS: ALCOHOL 170 mg/dL (NONE DETECTED); ALKALINE PHOSPHATASE 65 U/L (38-126); ANION GAP 9 (5-19); ASPARTATE AMINO TRANSFERASE 50 U/L (14-36); BILIRUBIN,TOTAL 0.2 mg/dL (0.2-1.3); BLOOD UREA NITROGEN 10 mg/dL (7-20); CALCIUM 8.9 mg/dL (8.4-10.2); CARBON DIOXIDE 25 mmol/L (22-30); CHLORIDE 107 mmol/L (98-107); GLUCOSE 109 mg/dL (75-110); TOTAL PROTEIN 7.2 g/dL (6.3-8.2)
[2020-02-04 16:52] LABS: ACETAMINOPHEN < 10 ug/mL (10-30); SALICYLATE < 1.0 mg/dL (2.0-20.0)
[2020-02-04 16:53] LABS: POTASSIUM 2.8 mmol/L (3.6-5.0)
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
[2020-02-04] MEDS ORDERED: LORAZEPAM INJ 2 MG/1 ML VIAL IV ONE (17:06)
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
[2020-02-04] MEDS ORDERED: LIDOCAINE 1% INJ-PF (10 MG/ML) 30 ML SDV INJ ONE (17:09)
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
[2020-02-04] MEDS ORDERED: POTASSIUM CHLORIDE 10 MEQ TABLET.ER PO ONE ×2 (18:49→21:57)
[2020-02-04] MEDS: POTASSI CL 20 MEQ/50 ML RIDER 20 MEQ/50 ML RTUPB IV SCH ×2 (19:13→21:30)
[2020-02-04] MEDS ORDERED: RINGERS SOLUTION,LACTATED 1,000 ML IV ONE (19:43)
[2020-02-04] MEDS ORDERED: DIPH/PERTUSS(ACELL)/TETANUS VAC/PF 0.5 ML SYR (>=10YO) IM ONE (19:43)
[2020-02-04 20:22] LABS: APPEARANCE,URINE CLEAR; BILIRUBIN,URINE NEGATIVE (NEGATIVE); COLOR,URINE STRAW; GLUCOSE, URINE NEGATIVE (NEGATIVE); KETONES,URINE NEGATIVE (NEGATIVE); LEUKOCYTE ESTERASE,URINE NEGATIVE (NEGATIVE); NITRITE,URINE NEGATIVE (NEGATIVE); PROTEIN,URINE NEGATIVE (NEGATIVE); URINE SPECIFIC GRAVITY 1.016; UROBILINOGEN,URINE NEGATIVE mg/dL (<2.0)
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
--- NOTE | 2020-02-04 21:08 | EKG REPORT ---
SEVERITY:- BORDERLINE ECG - SINUS TACHYCARDIA PROBABLE LEFT ATRIAL ABNORMALITY BORDERLINE T WAVE ABNORMALITIES : Confirmed by: Muriel Preciado MD 04-Feb-2020 21:07:55
[2020-02-04] MEDS ORDERED: KETOROLAC TROMETHAMINE INJ/PF 30 MG/1 ML SDV IV ONE (21:19)
[2020-02-04] MEDS ORDERED: METHOCARBAMOL 750 MG TABLET PO ONE (21:19)
[2020-02-04 22:33] VITALS: BP 137/103
== END 2020-02-04 22:35 | disposition home or self-care (01) ==
LOC: ER 16:08
DX: S91.311A Laceration without foreign body, right foot, initial encounter (principal); S91.312A Laceration without foreign body, left foot, initial encounter; F10.921 Alcohol use, unspecified with intoxication delirium; R50.9 Fever, unspecified; V47.5XXA Car driver injured in collision with fixed or stationary object in traffic accident, initial encounter; Z20.828 Contact with and (suspected) exposure to other viral communicable diseases; F17.200 Nicotine dependence, unspecified, uncomplicated; Z23 Encounter for immunization; Z78.1 Physical restraint status
CPT/HCPCS: 93005; 99285; 90471; 96375; 96365; 96366; 36415; 80307 ×3; 83735; 84703; 85025; 87635; 80053; 81001; 73070; 70450; 71260; 72125; 74177; 90715; 93010; J3490 ×2; J1885; J2060; J3480; J7120; C9803